=== PATIENT | male | born 1985 | race Caucasian/White ===

== ENCOUNTER 2019-06-17 20:45 | Observation (INO) | payer BC, SELFPAY ==
[2019-06-17 20:15] VITALS: BMI 25.0; BMI 25.1
[2019-06-17 20:16] VITALS: BP 138/83; PULSE 74; RESP 20; TEMP 36.8; O2SAT 98
--- NOTE | 2019-06-17 20:46 | HP.PCM_ITS ---
Problem List (1) RLQ abdominal pain Status: Acute History of Present Illness Date of Admission: 06/17/19 The patient is a 34 year old M transferred from [facility]. The patient reports that Friday he was moving furniture and experienced a sharp sudden right lower quadrant pain. He reports no nausea or vomiting and no migration of pain. He reports that the pain has come and gone since that day. It only happens with his moving or exerting himself. He has no fevers or chills. Past Medical History Allergies No Known Allergies Allergy (Verified 06/17/19 20:18) Home Medications: Ambulatory Orders Medication Instructions Recorded NK 06/17/19 Surgical History: no surgical history Smoking Status: Never smoker - *Family History Maternal History Items: No pertinent history Review of Systems Constitutional: Denies: Anorexia, Fever HEENT: Denies: Difficulty Swallowing Cardiovascular: Denies: Chest Pain Respiratory: Denies: Cough, Pleuritic Pain, Shortness of Breath Gastrointestinal: Reports: Abdominal Pain. Denies: Constipation, Diarrhea, Nausea, Vomiting Genitourinary: Denies: Dysuria Musculoskeletal: Denies: Joint Tenderness Skin: Denies: Jaundice VTE Information - Inpt Only VTE Present on Admission: No VTE Mechan Device Prophylaxis: SCD's Patient Problems: Active and Suspected Problems RLQ abdominal pain (Acute) - Physical Exam Vitals/I&O's: Vital Signs Temp Pulse Resp BP Pulse Ox 98.2 F 74 20 H 138/83 H 98 06/17/19 20:16 06/17/19 20:16 06/17/19 20:16 06/17/19 20:16 06/17/19 20:16 Oxygen Delivery Method Room Air Weight: 211 lb 10.3 oz Body Mass Index (BMI) 25.0 General: Alert, Oriented x3 HEENT: PERRLA Lungs: Normal air movement Cardiovascular: Regular rate, Regular Rhythm Abdomen: Soft, Non-Distended, Tender - Tender in right lower quadrant with no guarding or rebound. Negative Rovsing sign Current Medications Sodium Chloride () 10 - 40 ml IV UD PRN PRN Reason: SALINE FLUSH Assessment/Plan All Active Problems RLQ abdominal pain (Acute) 34-year-old male with right lower quadrant pain 1. The patient was transferred from [facility] due to the CT read. The CT was read as a mildly prominent tip of the appendix with some periappendiceal fat stranding and the possibility of acute appendicitis was raised. The patient had normal white count with no left shift. He has been experiencing the symptoms for 3 to 4 days. He reports that the pain only happens when he is moving or exerting himself. When he is laying in bed normally there is no pain whatsoever. He has had no nausea or vomiting or fevers or chills. He says this happened suddenly when he was moving furniture. He denies any migration of the pain. 2. I am not able to see the CT scan yet as the disc is not here yet. The patient is having right lower quadrant pain when he is laying in bed still there is no pain whatsoever. He has a negative Rovsing sign. I think it is very unlikely that he has acute appendicitis. He has not been given any antibiotics. I will keep him on a clear liquid diet overnight and recheck a CBC in the morning and see if his pain progresses. Currently he rates his pain at a 1 out of 10. Scott Valadez MD Pager: [facility] [address] [place] [address], [address] [place] [address] Office:
[2019-06-17] MEDS: 0.9% Saline Lock 10 ML Syringe IV (21:00)
[2019-06-17] MEDS: 0.9% Normal Saline 1,000 ML 100 ML IV (21:03)
[2019-06-18 04:11] VITALS: BP 118/74; PULSE 72; RESP 16; TEMP 36.6; O2SAT 99
[2019-06-18] MEDS: 0.9% Normal Saline 1,000 ML 100 ML IV (06:04)
[2019-06-18 07:07] LABS: Absolute Lymphocyte Count 1.96 X10^3/uL (0.83-4.51); Absolute Neutrophil Count 4.2 X10^3/uL (2.0-7.7); Basophil# 0.03 X10^3/uL; Basophil% 0.4 % (0-1); Eosinophil# 0.12 X10^3/uL; Eosinophils% 1.7 % (0-5); Hemoglobin 14.3 g/dL (13.0-16.5); Lymphocyte # 1.96 X10^3/ul (4.0); Mean Corp Hgb Conc 33.3 g/dL (32-36); Mean Corpuscular Volume 90.1 fL (80-94); Mean Platelet Vol. 9.4 fl (6.2-12.0); Monocyte# 0.61 X10^3/uL; Monocyte% 8.7 % (0-10); NRBC Flagged by Analyzer 0 % (0-5); Neutrophil # 4.24 X10^3/uL (2.7-7.7); Neutrophil % 60.8 % (47-70); Platelet Count 271 K/mm3 (150-450); RBC Distribution Width CV 13.2 % (11.6-14.6); RBC Distribution Width SD 43.7 fl (35.1-43.9); Red Blood Count 4.77 M/mm3 (4.6-6.2)
[2019-06-18 07:31] LABS: Anion Gap 1 (5-15); BUN 9 mg/dL (7-18); BUN/Creat Ratio 9.8 RATIO (10-20); Calcium,Total 8.2 mg/dL (8.5-10.1); Chloride 114 mmol/L (98-107); Creatinine, Serum 0.92 mg/dL (0.70-1.30); EST Glomerular Filtration Rate 100 mL/min (>60); Est Glom Filt Rate - Afr Amer 121 mL/min (>60); Estimated Creatinine Clearance 142.58 ml/min; Glucose 88 mg/dL (74-106); Sodium Level 142 mmol/L (136-145)
--- NOTE | 2019-06-18 08:37 | PN.SURG_ITS ---
Patient Problems: Active and Suspected Problems RLQ abdominal pain (Acute) Subjective: At rest the patient is complaining of 1 out of 10 right lower quadrant pain he says with movement it turns to a 3 out of 10. No nausea vomiting overnight and tolerated clear liquids. - Physical Exam Vitals/I&O's: Vital Signs Temp Pulse Resp BP Pulse Ox 98 F 72 16 118/74 99 06/18/19 04:11 06/18/19 04:11 06/18/19 04:11 06/18/19 04:11 06/18/19 04:11 Oxygen Delivery Method Room Air Weight: 211 lb 10.3 oz Body Mass Index (BMI) 25.0 Intake and Output for Last 24 Hours 06/16/19 06/17/19 06/18/19 23:59 23:59 23:59 Intake Total 300 / 300 901.67 / 901.67 Output Total 450 / 450 Balance 300 / 300 451.67 / 451.67 General: Alert, Oriented x3, Cooperative Neck: No JVD Lungs: Normal air movement Abdomen: Soft, Non-Distended, Tender - Very mild right lower quadrant pain to deep palpation Laboratory Results 06/18/19 06:40: WBC 7.0, RBC 4.77, Hgb 14.3, Hct 43.0, MCV 90.1, MCH 30.0, MCHC 33.3, RDW Std Deviation 43.7, RDW Coeff of Boom 13.2, Plt Count 271, MPV 9.4, Immature Gran % (Auto) 0.400, Neut % (Auto) 60.8, Lymph % (Auto) 28.0, [place] % (Auto) 8.7, Eos % (Auto) 1.7, Baso % (Auto) 0.4, Absolute Neuts (auto) 4.2, Absolute Lymphs (auto) 1.96, Nucleated RBC % 0 06/18/19 06:40: Sodium 142, Potassium 4.0, Chloride 114 H, Carbon Dioxide 27.0, Anion Gap 1 L, BUN 9, Creatinine 0.92, Estim Creat Clear Calc 142.58, Est GFR (MDRD) Af Amer 121, Est GFR (MDRD) Non-Af 100, BUN/Creatinine Ratio 9.8 L, Glucose 88, Calcium 8.2 L Current Medications Acetaminophen (Tylenol) 650 mg PO Q4H PRN PRN PRN Reason: Pain (1-10/10) or Fever Sodium Chloride () 1,000 mls @ 100 mls/hr IV .Q10H BELLE Last Admin: 06/18/19 06:04 Dose: 100 mls/hr Documented by: Ketorolac Tromethamine (Toradol (Bkc)) 15 mg IV Q8H PRN PRN PRN Reason: Pain Score 4-10/10 Stop: 06/19/19 20:45 Ondansetron HCl (Zofran) 4 mg IV Q6H PRN PRN PRN Reason: NAUSEA Sodium Chloride () 10 - 40 ml IV UD PRN PRN Reason: SALINE FLUSH Last Admin: 06/17/19 21:00 Dose: 10 ml Documented by: Medical Necessity - Tobacco Use Smoking Status: Never smoker Assessment/Plan All Active Problems RLQ abdominal pain (Acute) 34-year-old male with right lower quadrant pain 1. I was able to review the CT scan from the [facility]. It appears that the patient did have a mild amount of fat stranding the right lower quadrant but he also had a lot of enlarged lymph nodes in the mesentery to the right lower quadrant. The patient has not been given any antibiotics and his white count continues to be normal with no left shift. The patient also is experiencing no nausea or vomiting and tolerates a clear liquid diet. 2. At this point I believe the patient has a muscle strain versus mesenteric adenitis. I did tell him that there were some enlarged lymph nodes in the right lower quadrant. I explained this is usually self-limiting but I did offer the patient laparoscopic appendectomy as there is no way to tell for sure if he has appendicitis without removing his appendix. At this time I have a very low likelihood that this is appendicitis. The patient would like to avoid surgery. I explained that mesenteric adenitis usually is self-limiting and will go away. I will try regular diet and if he tolerates this he can be discharged home and follow-up with me in the office. If anything gets worse at any time I will taken for laparoscopic appendectomy. Scott Valadez MD Pager: [facility] [address] [place] [address], [address] [place] [address] Office:
[2019-06-18 10:35] VITALS: BP 108/69; PULSE 80; RESP 18; TEMP 36.4; O2SAT 98
--- NOTE | 2019-06-18 14:15 | DCINST_ITS ---
- Discharge Diagnoses Current Active Problems: Current Active and Chronic Problems RLQ abdominal pain (Acute) You will use the following diet at home:: Regular Your food should be the consistency of: Regular Discharge Activity: No Restrictions Call your doctor if your incision/area has: Increased Pain/ Swelling Call your doctor if you observe: Fever of 101 or Higher Additional Instructions: If there is any increase in pain, nausea, vomiting or fever, call the hospital or present to ER. Allergies/Adverse Reactions: Allergies No Known Allergies Allergy (Verified 06/17/19 20:18) Medications to take at Discharge NK 06/17/19 Primary Care Physician: Gerry Larsen MD [Primary Care Provider] - Test Results: Test results from this visit will be discussed in further detail at your follow- up appointment, if applicable. Please Follow Up With: Scott Valadez MD When: Please call to schedule follow up appointment as needed. [phone]
== END 2019-06-18 15:10 | disposition home or self-care (01) ==
PROVIDERS: Admitting Provider Surgery; PCP Family Medicine; Visit Provider Surgery
DX: R10.31 Right lower quadrant pain (principal); R59.0 Localized enlarged lymph nodes
CPT/HCPCS: 36415; 80048; 85025; 96360; 96361; 99218; J7030; A4216; G0378

== ENCOUNTER 2020-08-07 04:02 | Emergency (ER) | payer OTHER, SELFPAY ==
[2020-08-07 04:05] VITALS: BP 116/84; PULSE 99; RESP 24; TEMP 37.7; O2SAT 94; BMI 27.2
[2020-08-07 04:13] VITALS: BP 116/84; PULSE 88; RESP 24; TEMP 37.7; O2SAT 94
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
[2020-08-07 04:25] LABS: Absolute Lymphocyte Count 0.72 X10^3/uL (0.83-4.51); Absolute Neutrophil Count 4.2 X10^3/uL (2.0-7.7); Basophil# 0.01 X10^3/uL; Basophil% 0.2 % (0-1); Hematocrit 47.2 % (40-54); Hemoglobin 15.9 g/dL (13.0-16.5); Lymphocyte # 0.72 X10^3/ul (4.0); Lymphocyte % 13.3 % (19-41); Mean Corp Hgb Conc 33.7 g/dL (32-36); Mean Corpuscular Hgb 30.1 pg (27.0-32.0); Mean Corpuscular Volume 89.2 fL (80-94); Monocyte# 0.42 X10^3/uL; Monocyte% 7.7 % (0-10); NRBC Flagged by Analyzer 0 % (0-5); Neutrophil # 4.24 X10^3/uL (2.7-7.7); Neutrophil % 78.1 % (47-70); Platelet Count 167 K/mm3 (150-450); RBC Distribution Width CV 12.9 % (11.6-14.6); RBC Distribution Width SD 42.7 fl (35.1-43.9); Red Blood Count 5.29 M/mm3 (4.6-6.2); White Blood Count 5.4 K/mm3 (4.4-11.0)
[2020-08-07 04:36] LABS: Anion Gap 8 (5-15); BUN 9 mg/dL (7-18); BUN/Creat Ratio 9.6 RATIO (10-20); Calcium,Total 8.1 mg/dL (8.5-10.1); Chloride 101 mmol/L (98-107); Creatinine, Serum 0.93 mg/dL (0.70-1.30); EST Glomerular Filtration Rate 98 mL/min (>60); Est Glom Filt Rate - Afr Amer 118 mL/min (>60); Estimated Creatinine Clearance 139.72 ml/min; Glucose 106 mg/dL (74-106); Sodium Level 133 mmol/L (136-145)
[2020-08-07] MEDS: Ondansetron 4 MG/2 ML Vial IV (04:45)
[2020-08-07] MEDS: Ketorolac 30 MG/ML Syringe IV (04:45)
[2020-08-07] MEDS: 0.9% Normal Saline 1,000 ML 999 ML IV (04:46)
[2020-08-07 04:59] LABS: Carboxyhemoglobin Frac (CO) 1.2 % (0.0-1.5)
[2020-08-07 05:10] VITALS: BP 123/76; PULSE 88; RESP 25; TEMP 37.7; O2SAT 95
[2020-08-07 05:42] VITALS: BP 115/78; PULSE 86; RESP 19; TEMP 37.6; O2SAT 94
== END 2020-08-07 05:56 | disposition home or self-care (01) ==
PROVIDERS: Emergency Provider Emergency Medicine
DX: U07.1 COVID-19 (principal)
CPT/HCPCS: 80048; 82375; 85025; 96361; 96374; 96375; 99285; J7030; A4216; J2405

== ENCOUNTER 2020-08-08 15:19 | Emergency (ER) | payer OTHER, SELFPAY ==
[2020-08-07 04:05] VITALS: BMI 27.2
[2020-08-08 15:20] VITALS: BP 120/76; PULSE 101; RESP 16; TEMP 37.8; O2SAT 96; BMI 25.9
[2020-08-08] MEDS: 0.9% Normal Saline 1,000 ML 1000 ML IV (15:50)
--- NOTE | 2020-08-08 16:00 | ED.DCSUM_ITS ---
History of Present Illness Chief Complaint: Weakness Informant: Patient Onset: Days Context: Gradual Onset Timing: Continuous Quality: Neurolysed weakness and sense of unwellness with nausea and gagging Location: Generalized due to Covid Current Severity: Moderate Maximum Severity: Severe Worsened by: Attempt to eat or drink Relieved by: Nothing Associated Symptoms: Myalgias, arthralgias, fever, cough, upper respiratory symptoms Narrative: Patient is a 35-year-old male whose onset of symptoms was 1 week ago. He was seen yesterday. He presents because he does not feel better. His only vomited once since discharge. He states Zofran is not effective. This is decreased from what he reported yesterday. He does complain of headache. Has intermittent photophobia. Denies neck pain or neck stiffness. He does report rhinorrhea congestion. He denies loss of taste or smell. Does report sore throat. He does have a cough which essentially is nonproductive. He denies dyspnea or dyspnea on exertion. He denies hematemesis, melena medic easier. He denies dysuria, frequency, urgency or hematuria. He does report myalgias arthralgias. He denies rash. He denies neurologic symptoms. Prior similar symptoms: Yes Recent Illness/Hospitalization: Yes - Past Medical History (1) Lab test positive for detection of COVID-19 virus Status: Acute Past Medical History - Allergies and Home Meds Allergies/Adverse Reactions: Allergies No Known Allergies Allergy (Verified 08/08/20 15:23) Primary Care Physician: Care Physician,No Primary [Primary Care Provider] - Prior records reviewed: Yes Surgical History: noncontributory Lives: Alone Smoking Status: Never smoker Alcohol: None Drugs: None Review of Systems General: Reports: Fever, Malaise. Denies: Chills, Sweats Eyes: Denies: Visual changes - bilaterally, Blurred Vision - bilaterally ENT: Denies: Bilateral ear pain, Rhinorrhea, Sore throat Cardiovascular: Denies: Chest pain, Palpitations Respiratory: Reports: Cough, Sputum. Denies: Dyspnea, Dyspnea on exertion, Orthopnea, Paroxysmal nocturnal dyspnea, -, - Gastrointestinal: Reports: Nausea. Denies: Abdominal pain, Vomiting, Diarrhea, Melena, Hematochezia Genitourinary: Denies: Dysuria, Hematuria, Frequency Musculoskeletal: Reports: Myalgias, Arthralgias. Denies: Neck pain, Back pain, Swelling, Extremity Pain, -, - Skin: Denies: Rash, Wounds Neurological: Reports: Headache, Weakness. Denies: Parasthesia, Numbness Psych: Denies: Depression, Anxiety Endocrine: Denies: Polyuria, Polydipsia Physical Exam Vital Signs/Narrative: Vital Signs Temp Pulse Resp BP Pulse Ox 08/08/20 15:20 100.1 F H 101 H 16 120/76 96 Inital Vital Signs reviewed: Yes General: Well nourished, Well developed, No Acute Distress Head: Normocephalic, Atraumatic Eyes: Perrl, EOMI. Negative for: Pale conjunctiva, Scleral icterus ENT: No rhinorrhea, TM's clear, Dry mucous membranes Neck: Supple, Nontender, No lymphadenopathy, No JVD Cardiovascular: Regular rhythm, No murmurs, Normal S1, Normal S2, Tachycardia Respiratory: No distress, CTA bilaterally, Chest nontender Abdomen: Soft, Nontender, Nondistended, Normal bowel sounds, No masses Rectal: Deferred Back: Nontender, Normal Inspection Extremities: Nontender, No edema. Negative for: Calf Tenderness Skin: Normal color, No rash, No Trauma. Negative for: Cyanosis, Diaphoresis, Jaundice Neurological: Alert, Oriented x3, Cranial nerves II-XII grossly intact, Normal Strength, Normal Sensation, Normal DTR, Normal Gait Psychological: Normal affect, Normal Mood Diagnostic/Tx/Re-eval Laboratory Results 08/08/20 16:27 Sodium 137 Potassium 3.3 L Chloride 105 Carbon Dioxide 26.0 Anion Gap 6 BUN 7 Creatinine 1.00 Estim Creat Clear Calc 129.94 Est GFR (MDRD) Af Amer 109 Est GFR (MDRD) Non-Af 90 BUN/Creatinine Ratio 7.0 L Glucose 85 Calcium 7.9 L Basic metabolic panel is unremarkable. - Medical Decision Making Patient clinically is dehydrated. 1 L of normal saline was ordered. Because of his poor p.o. intake BMP was obtained to assess electrolytes, anion gap and renal function. He was treated with IV Zofran ED Disposition - Plan for ED Patient: Disposition: Home or Assisted Living Diagnosis: COVID-19 virus infection, Fever after severe acute respiratory syndrome coronavirus 2 (SARS-CoV-2) vaccination, Mild dehydration Instructions: Coronavirus Disease 2019 (COVID-19): Overview, Coronavirus Disease 2019 (COVID-19): Caring for Yourself or Others Prescriptions: Naproxen [Naprosyn] 500 mg PO BID #14 tablet Transmission Status: Pending to [id number] Metoclopramide [Reglan] 10 mg PO 4X/DAY PRN #20 tablet PRN Reason: Headache Transmission Status: Pending to [id number] Referrals: Care Physician,No Primary [Primary Care Provider] - 10-14 Days if not better ()
[2020-08-08] MEDS: Ondansetron 4 MG/2 ML Vial IV (16:19)
[2020-08-08 17:03] LABS: Anion Gap 6 (5-15); BUN 7 mg/dL (7-18); Calcium,Total 7.9 mg/dL (8.5-10.1); Chloride 105 mmol/L (98-107); EST Glomerular Filtration Rate 90 mL/min (>60); Est Glom Filt Rate - Afr Amer 109 mL/min (>60); Estimated Creatinine Clearance 129.94 ml/min; Glucose 85 mg/dL (74-106); Potassium 3.3 mmol/L (3.5-5.1); Sodium Level 137 mmol/L (136-145)
[2020-08-08] MEDS: Ketorolac 15 MG/ML Vial IV (17:10)
[2020-08-08 17:23] VITALS: BP 135/74; PULSE 93; RESP 16; O2SAT 99
== END 2020-08-08 17:27 | disposition home or self-care (01) ==
PROVIDERS: Emergency Provider Emergency Medicine
DX: U07.1 COVID-19 (principal); R50.83 Postvaccination fever; T50.Z95A Adverse effect of other vaccines and biological substances, initial encounter; Y92.9 Unspecified place or not applicable; E86.0 Dehydration
CPT/HCPCS: 80048; 96361; 96374; 96375; 99285; J7030; A4216; J2405

== ENCOUNTER 2020-08-11 01:39 | Emergency (ER) | payer OTHER, SELFPAY ==
[2020-08-11 01:40] VITALS: BP 137/80; PULSE 98; RESP 22; TEMP 37.1; O2SAT 93; BMI 25.9
[2020-08-11 01:45] VITALS: O2SAT 97
[2020-08-11] MEDS: 0.9% Normal Saline 1,000 ML 1000 ML IV (02:07)
[2020-08-11] MEDS: Ketorolac 15 MG/ML Vial IV (02:07)
[2020-08-11] MEDS: Ondansetron 4 MG/2 ML Vial IV (02:08)
[2020-08-11 02:12] LABS: Absolute Lymphocyte Count 0.89 X10^3/uL (0.83-4.51); Absolute Neutrophil Count 5.9 X10^3/uL (2.0-7.7); Basophil# 0.02 X10^3/uL; Basophil% 0.3 % (0-1); Eosinophil# 0.02 X10^3/uL; Eosinophils% 0.3 % (0-5); Hematocrit 41.1 % (40-54); Hemoglobin 13.6 g/dL (13.0-16.5); Lymphocyte # 0.89 X10^3/ul (4.0); Lymphocyte % 11.5 % (19-41); Mean Corp Hgb Conc 33.1 g/dL (32-36); Mean Corpuscular Hgb 29.8 pg (27.0-32.0); Mean Corpuscular Volume 89.9 fL (80-94); Mean Platelet Vol. 8.9 fl (6.2-12.0); Monocyte# 0.81 X10^3/uL; Monocyte% 10.5 % (0-10); NRBC Flagged by Analyzer 0 % (0-5); Neutrophil # 5.93 X10^3/uL (2.7-7.7); Neutrophil % 76.4 % (47-70); Platelet Count 347 K/mm3 (150-450); RBC Distribution Width CV 13.2 % (11.6-14.6); RBC Distribution Width SD 43.8 fl (35.1-43.9); Red Blood Count 4.57 M/mm3 (4.6-6.2); White Blood Count 7.8 K/mm3 (4.4-11.0)
[2020-08-11 02:24] LABS: D-Dimer Quantitative (DVT/PE) 0.98 FEU/ug/m (0.27-0.49)
--- NOTE | 2020-08-11 02:27 | CT_ITS ---
STUDY: CTA CHEST REASON FOR EXAM: Male, 35 years old. COVID, PE? RADIATION DOSAGE (If Supplied By Facility): CTDIvol = ( 12.29 ) mGy, DLP = ( 551.47 ) mGycm TECHNIQUE: The examination was performed with the intravenous administration of IV 100mL Isovue-370. Post-processing of the angiographic images was performed, with multiplanar reformation and 3D reconstruction. Individualized dose optimization techniques were used for this CT. COMPARISON: None. FINDINGS: Normal enhancement of the main pulmonary artery and right and left pulmonary arteries. Normal enhancement of the bilateral peripheral pulmonary arteries. There is no demonstrated pulmonary embolism. Normal thoracic aorta and visualized great vessels. There is no demonstrated aortic dissection. Normal heart and pericardium. Normal mediastinum. Normal hilar regions. Normal visualized trachea and bronchi. The lungs are well expanded. Diffuse patchy groundglass airspace disease bilaterally compatible with COVID. No consolidation or effusion Normal chest wall structures. Normal osseous structures. Normal visualized upper abdomen. CT/CTA Chest W/WO Contrast IMPRESSION: Normal CTA chest examination, without a demonstrated pulmonary embolism or arterial dissection. Diffuse patchy airspace disease throughout compatible with COVID Electronically Signed: Camacho Olguin DO at 3:09 EDT Tel , Service support ,
[2020-08-11 02:29] LABS: AST(SGOT) 49 U/L (15-37); Alanine Aminotransfer ALT/SGPT 55 U/L (16-61); Albumin, Serum 2.4 g/dL (3.2-5.0); Alkaline Phosphatase 64 U/L (45-117); Anion Gap 2 (5-15); BUN 13 mg/dL (7-18); BUN/Creat Ratio 14.2 RATIO (10-20); Bilirubin, Direct 0.27 mg/dL (0.00-0.30); Calcium,Total 7.9 mg/dL (8.5-10.1); Chloride 105 mmol/L (98-107); Creatinine, Serum 0.92 mg/dL (0.70-1.30); EST Glomerular Filtration Rate 100 mL/min (>60); Est Glom Filt Rate - Afr Amer 121 mL/min (>60); Estimated Creatinine Clearance 141.24 ml/min; Globulin 3.9 g/dL (2.2-4.2); Glucose 99 mg/dL (74-106); Lipase 40 U/L (73-393); Potassium 3.4 mmol/L (3.5-5.1); Protein, Total 6.3 g/dL (6.4-8.2); Sodium Level 138 mmol/L (136-145)
[2020-08-11 03:05] VITALS: O2SAT 97
[2020-08-11 03:08] VITALS: BP 136/86; PULSE 89; RESP 30; TEMP 36.7; O2SAT 96
--- NOTE | 2020-08-11 03:45 | ED.DCSUM_ITS ---
- ER Visit Summary Date of Service: 08/11/20 Chief Complaint: Cough and shortness of breath History of Present Illness: The patient is a 35 M whose primary care physician is in [place] and he does not remember his name. Patient reports he has a cough began 10 days ago. It is nonproductive. States that he was diagnosed with Covid 6 days ago. He is just not felt well since. Patient complains of subjective fever and chills. He reports he has had chest pain with deep breaths only for the past 6 days. He is pain-free currently. 9 out of 10 at worst. He reports that he has mild shortness of breath at rest and moderate shortness of breath with exertion. He reports that this has not been progressing over his illness. Patient denies abdominal pain. However he reports he has been nauseated and had a very poor appetite. He has vomited 1-2 times since being seen yesterday. No blood in his emesis. He reports that he had a very small episode of diarrhea today. There was no blood in his stools or black tarry stools. He complains of generalized weakness and diffuse myalgias. Physical Examination: Vitals: Stable. Afebrile. General: Well-nourished and well-developed. Head: Normocephalic atraumatic. Neck: Supple, no lymphadenopathy. No JVD. Nontender. Cardiovascular: Regular rate and rhythm. No murmurs. Respiratory: No respiratory distress. Clear to auscultation bilaterally. Abdominal: Soft, nontender, nondistended, normal bowel sounds. No guarding, rebound, or peritoneal signs. Back: Nontender. Extremities: Nontender, no edema. Skin: Normal color, no rash. Neurologic: Alert and oriented ?3. Cranial nerves II through XII are intact. Normal strength and sensation. Psych: Normal affect. Test Results: CBC shows 7 neutrophils 76 lymphocytes of 12. Chem-7 shows potassium 3.4 and calcium 7.9. However this is 9.2 when corrected for his albumin of 2.4. Total protein 6.3, AST is 49. Lipase is normal. D-dimer is 0.98. Clinical Impression(s) from Imaging Studies Chest CTA 08/11/20 02:27 IMPRESSION: Normal CTA chest examination, without a demonstrated pulmonary embolism or arterial dissection. Diffuse patchy airspace disease throughout compatible with COVID Electronically Signed: Camacho Olguin DO at 3:09 EDT Tel , Service support , Emergency Department Course and Treatment: Patient had an IV placed. With his not drinking well and clinically appearing dehydrated he was given liter of normal saline. He is also given Toradol and Zofran IV. He is ambulated about the emergency department his pulse ox remained 92% at the lowest on room air. Treatment Plan: Had a prolonged discussion with the patient that I have no doubt that he does not feel well. However, he does not meet criteria for admission to the hospital. He will be discharged with symptomatic care. Instructed continue with Zofran. Patient is instructed to continue to quarantine until he is asymptomatic. Follow-up his primary care physician in 1 week if not improving. Return to the emergency department for any worsening symptoms. Disposition: To home in improved and stable condition. Impression: 1. COVID-19 infection. This note was generated with [employer] dictation software. It may contain incorrect words, spelling, and punctuation that were not noted in review of the chart prior to signing ED Disposition - Plan for ED Patient: Instructions: Coronavirus Disease 2019 (COVID-19): Overview Referrals: Doctor,Your [STAFF PHYSICIAN] - 1 Week if not improving
[2020-08-11 04:04] VITALS: BP 128/66; PULSE 88; RESP 26; O2SAT 94
== END 2020-08-11 04:27 | disposition home or self-care (01) ==
LOC: ED 02:11
PROVIDERS: Emergency Provider Emergency Medicine
DX: U07.1 COVID-19 (principal)
CPT/HCPCS: 71275; 80048; 80076; 83690; 85025; 85379; 96361; 96374; 96375; 99285; Q9967; A4216; J2405

== ENCOUNTER 2024-02-22 18:37 | Emergency (ER) | payer OTHER, SELFPAY ==
[2024-02-22 18:38] VITALS: BP 137/90; PULSE 122; RESP 16; TEMP 36.9; O2SAT 94; BMI 28.7
--- NOTE | 2024-02-22 19:15 | RAD_ITS ---
EXAM: XR CHEST, 2 VIEWS CLINICAL INDICATION: cough TECHNIQUE: Frontal and lateral views of the chest. COMPARISON: No relevant prior studies available. FINDINGS: LUNGS AND PLEURAL SPACES: Unremarkable. No consolidation or edema. No pneumothorax. No effusion. HEART: Unremarkable. Cardiac silhouette not enlarged. MEDIASTINUM: Central airways and mediastinal contour are unremarkable. BONES/JOINTS: Unremarkable. No acute fracture. SOFT TISSUES: Unremarkable. RAD/Chest PA and Lateral IMPRESSION: No radiographic evidence of acute cardiopulmonary disease. Electronically Signed: Franco Serrato MD at 19:59 EDT ,
--- NOTE | 2024-02-22 19:27 | EX.ED.DYSGE1 ---
HPI History of Present Illness Chief Complaint: Cold Sx Informant: patient Narrative Narrative: 1 week history of productive cough. Yesterday myalgias chills today had a fever 103 status post Motrin. No vomiting or diarrhea. Is been tolerant oral fluids. Son had similar symptoms however symptoms improved. Denies dyspnea or wheeze. Denies chest pain. Denies any urinary symptoms. PFSH PFSH Medical History Acid reflux Home Medications ?Medication ?Instructions ?Recorded ?Last Taken ?Type NK 06/17/19 Unknown History ondansetron 4 mg disintegrating 8 mg (2 x 4 mg) PO Q8H PRN PRN 08/07/20 Unknown Rx tablet Nausea #20 tabs metoclopramide HCl 10 mg tablet 10 mg PO 4X/DAY PRN Headache #20 08/08/20 Unknown Rx tabs naproxen 500 mg tablet 500 mg PO BID #14 tabs 08/08/20 Unknown Rx Allergy/AdvReac Type Severity Reaction Status Date / Time No Known Allergies Allergy Verified 02/22/24 18:38 Social History Smoking Status: Never smoker ROS ROS ED Constitutional Constitutional ED: Reports chills and fever(s); Denies sweats Eyes Eyes: Denies change in vision ENT ENT ED: Denies dysphagia or sore throat Cardiovascular Cardiovascular: Denies chest pain, leg edema, palpitations or racing heartbeat Respiratory/Chest Respiratory/Chest: Reports cough; Denies dyspnea or dyspnea on exertion Gastrointestinal Gastrointestinal: Denies abdominal pain, diarrhea, nausea or vomiting Genitourinary Genitourinary ED: Denies dysuria, hematuria or urinary frequency Musculoskeletal Musculoskeletal: Reports myalgias; Denies back pain, extremity pain or neck pain Integumentary Denies rash or wounds Neurologic Neurologic: Denies headache(s), paresthesias or weakness EXAM Physical Exam Const Vital Signs: 02/22/24 18:38 02/22/24 18:49 02/22/24 21:01 Temperature 98.5 F 98.1 F Temperature Source Oral Pulse Rate 122 H 87 Respiratory Rate 16 16 Respiratory Effort Normal Non-Labored Respiratory Pattern Normal Blood Pressure 137/90 H Blood Pressure Mean 105 Pulse Ox 94 100 Oxygen Delivery Method Room Air Positive well nourished and well developed General Appearance ED: well developed and NAD HEENT Reports moist mucous membranes normocephalic and atraumatic Eyes EOMs intact bilaterally and conjunctivae normal General Eye ED: Yes normal appearance of both eyes Neck no lymphadenopathy and supple General: Negative for tenderness Chest Wall Chest: Negative for tenderness Resp normal respiratory effort and normal air movement Effort and Inspection: symmetric chest movement; Negative for respiratory distress Cardio regular rhythm and no murmurs Rate: tachycardic Peripheral Pulses: pulses 2+ throughout GI normal to inspection, nondistended, normoactive bowel sounds and non-tender Palpation: Negative for guarding or rebound tenderness present Back/Spine no CVA tenderness and no thoracic nor lumbar tenderness Extremity normal to inspection General Extremety ED: Negative for edema or tenderness General Extremity: Negative for edema Neuro oriented x3 and no sensory deficits noted Sensorium / Orientation: awake and alert Skin no rashes or lesions noted and no wounds MDM MDM MDM Narrative Medical decision making narrative: Interventions / MDM: Differential diagnosis: Bronchitis, viral syndrome Diagnosis considered but do not suspect: Pneumonia however x-ray negative. My EKG interpretation: N/A Imaging independently reviewed and interpreted by myself: 2 view chest x-ray: No acute process. Also read by radiology. External documents reviewed: N/A Test considered but not ordered:N/A ED course: Afebrile in the ED however status post Motrin. Is tachycardic likely with his cough and fever symptoms. There is no recent vomiting or diarrhea. Due to national shortage of IV fluids, will allow to continue p.o. fluids. 94% room air no respiratory distress. COVID, influenza, RSV sent. Two-view chest x-ray ordered for further evaluation. X-ray negative. Viral swabs negative. Heart rate improved on reevaluation. I discussed viral syndrome with the patient. Discussed adjunct therapies for his cough with a humidifier and vapor rubs. Return precaution discussed. All questions were answered. Re-evaluation: stable Disposition discussed with patient/family/significant other: Patient Case discussed with consulting clinician: N/A This note was generated with [employer] dictation software. It may contain incorrect words, spelling, and punctuation that were not noted in checking the note before signing. Radiography Diagnostic Testing: Clinical Impression(s) from Imaging Studies Chest X-Ray 02/22/24 19:15 IMPRESSION: No radiographic evidence of acute cardiopulmonary disease. Electronically Signed: Franco Serrato MD at 19:59 EDT , Discharge Plan Triage Chief Complaint: Cold Sx ED Provider: [facility] Dx/Rx/DC Orders Clinical Impression: Viral URI with cough, Fever Instructions: ED Fever Control (Adult), ED URI, Viral, No Abx (Adult) Prescriptions: No Action NK ondansetron 4 MG tablet 8 mg PO Q8H PRN PRN (Reason: Nausea) Qty: 20 0RF naproxen 500 MG tablet 500 mg PO BID Qty: 14 0RF metoclopramide HCl 10 MG tablet 10 mg PO 4X/DAY PRN (Reason: Headache) Qty: 20 0RF Stand Alone Forms: ED Work / School Excuse Primary Care Provider: Gerry Larsen Referrals: Gerry Larsen MD [Primary Care Provider] - 1 Week if not improving Activity Restrictions/Additional Instructions: 2 view chest x-ray negative. COVID, influenza, RSV negative. Continue oral fluids Tylenol or Motrin as needed. Follow-up with her doctor. Print Language: Arabic Disposition Disposition: Home, Self Care Discharge Date/Time: 02/22/24 21:02
[2024-02-22 21:01] VITALS: PULSE 87; RESP 16; TEMP 36.7; O2SAT 100
== END 2024-02-22 21:02 | disposition home or self-care (01) ==
PROVIDERS: Emergency Provider Emergency Medicine; PCP Family Medicine; Visit Provider Emergency Medicine
DX: J06.9 Acute upper respiratory infection, unspecified (principal); R05.9 Cough, unspecified; R50.9 Fever, unspecified
CPT/HCPCS: 71046; 87631; 99282